=== PATIENT | female | born 1935 | race African-American/Black ===

== ENCOUNTER 2020-01-07 09:58 | Emergency (ER) | payer MEDICARE ==
--- NOTE | 2020-01-07 10:41 | RAD ---
RIGHT ELBOW 3 VIEWS: Date: 01/07/2020 HISTORY: Right elbow pain for 3-4 days without injury. FINDINGS: Severe arthrosis changes of the elbow joint with a large joint effusion. Prominent vascular calcifica tions. IMPRESSION: Severe right elbow joint arthrosis. Large, distended elbow joint effusion. Prominent vascular calcifi cations. No overt acute fracture. POS: [facility]
[2020-01-07] MEDS ORDERED: traMADol HCl 50 MG TAB ONE (11:18)
== END 2020-01-07 11:21 | disposition home or self-care (01) ==
LOC: ERS 09:58
DX: M25.521 Pain in right elbow (principal); I25.10 Atherosclerotic heart disease of native coronary artery without angina pectoris; W18.30XA Fall on same level, unspecified, initial encounter